=== PATIENT | female | born 1975 | race Asian ===

== ENCOUNTER 2017-01-18 14:09 | Outpatient (CLI) | payer MEDICAID ==
[~2017-01-18] VITALS: Ht 157.5 cm; Wt 59.1 kg
[2017-01-18 14:41] VITALS: BP 106/61
[2017-01-18] MEDS ORDERED: PREN1TAB60 PO (14:50)
== END 2017-01-18 15:16 | disposition home or self-care (01) ==
LOC: LDOP 14:09
PROVIDERS: ATTEND Obstetrics & Gynecology
DX: O09.523 Supervision of elderly multigravida, third trimester (principal); O26.893 Other specified pregnancy related conditions, third trimester; R10.9 Unspecified abdominal pain; Z3A.37 37 weeks gestation of pregnancy
CPT/HCPCS: 59025; 99211; G0463

== ENCOUNTER 2017-01-19 04:30 | Inpatient (IN) | payer MEDICAID ==
[~2017-01-19] VITALS: Ht 157.5 cm; Wt 61.0 kg
[~2017-01-19 04:30] MED LIST: PREN1TAB60 PO
[2017-01-19] MEDS ORDERED: OXYTOCIN 30U/ 0.9% NaCL 500ML 500 ML IV ONE (04:46)
[2017-01-19] MEDS ORDERED: D5%-LACTATED RINGERS 1,000 ML IV SCH (04:46)
[2017-01-19] MEDS ORDERED: OXYTOCIN 30U/ 0.9% NaCL 500ML 500 ML ONE (04:53)
[2017-01-19] MEDS ORDERED: MISOPROSTOL 200 MCG TABLET ONE (04:53)
[2017-01-19] MEDS ORDERED: LIDOCAINE 1%, 20ML ONE ×2 (04:53→05:49)
[2017-01-19] MEDS ORDERED: NEWBORN KIT ONE (04:53)
[2017-01-19] MEDS ORDERED: FENTANYL PF 100 MCG/2ML ONE (04:59)
[2017-01-19] MEDS ORDERED: FENTANYL PF 100 MCG/2ML IVPush PRN (05:00)
[2017-01-19] MEDS ORDERED: FENTANYL PF 100 MCG/2ML IV PRN (05:00)
[2017-01-19] MEDS ORDERED: ONDANSETRON 2MG/ML, 2ML IVPush PRN (05:00)
[2017-01-19] MEDS: LACTATED RINGERS 1,000 ML IV SCH ×2 (05:16→12:46)
[2017-01-19] MEDS ORDERED: OXYTOCIN 30U/ 0.9% NaCL 500ML 500 ML IV SCH (08:17)
[2017-01-19] MEDS ORDERED: OXYcodone/APAP 5/325MG TABLET PO PRN ×2 (08:30)
[2017-01-19] MEDS ORDERED: MISOPROSTOL 200 MCG TABLET SL PRN (08:30)
[2017-01-19] MEDS ORDERED: ACETAMINOPHEN 325 MG TABLET PO PRN (08:30)
[2017-01-19] MEDS ORDERED: IBUPROFEN 600 MG TABLET PO PRN (08:30)
[2017-01-19] MEDS ORDERED: DOCUSATE 100 MG CAPSULE PO PRN (08:30)
[2017-01-19] MEDS ORDERED: ONDANSETRON 2MG/ML, 2ML IV PRN (08:30)
[2017-01-19] MEDS: PRENATAL VIT/IRON/FA 1 EACH TABLET PO SCH (09:00)
[2017-01-19 10:30] VITALS: BP 105/70
[2017-01-19 12:00] VITALS: BP 109/72
[2017-01-19 14:59] VITALS: BP 112/72
[2017-01-19 20:00] VITALS: BP 114/72
[2017-01-20 00:15] VITALS: BP 106/70
[2017-01-20 07:50] VITALS: BP 96/60
[2017-01-20] MEDS: PRENATAL VIT/IRON/FA 1 EACH TABLET PO SCH (07:58)
== END 2017-01-20 16:12 | disposition home or self-care (01) | DRG 775 ==
LOC: LDOP 04:30 → LDIP 04:53 → 2NW 09:55
PROVIDERS: ADMIT Obstetrics & Gynecology; ATTEND Obstetrics & Gynecology
PROC: 10E0XZZ Delivery of Products of Conception, External Approach (ICD-10-PCS; principal; 2017-01-19)
DX: O80 Encounter for full-term uncomplicated delivery (principal); Z37.0 Single live birth; Z3A.37 37 weeks gestation of pregnancy; O09.523 Supervision of elderly multigravida, third trimester
CPT/HCPCS: 36415; 85025; 86850; 86900; J3010; J2590; J7120

== ENCOUNTER → 2017-04-18 | Outpatient (CLI) | payer MEDICAID ==
[2017-04-18 12:53] LABS: HEMATOCRIT 40.9 % (34.6-47.8); HEMOGLOBIN 13.6 g/dL (11.7-16.4); WHITE BLOOD COUNT 5.3 x10^3/uL (3.4-10)
== END | disposition home or self-care (01) ==
LOC: STAR 12:00
PROVIDERS: ATTEND Obstetrics & Gynecology
DX: Z30.2 Encounter for sterilization (principal); R82.99 Other abnormal findings in urine
CPT/HCPCS: 36415; 81003; 84703; 85025

== ENCOUNTER 2017-04-26 09:05 | Day surgery (SDC) | payer MEDICAID ==
[~2017-04-26] VITALS: Ht 157.5 cm; Wt 54.6 kg
[2017-04-26] MEDS ORDERED: LACTATED RINGERS 1,000 ML IV SCH (09:16)
[2017-04-26 09:22] VITALS: BP 111/76
[2017-04-26] MEDS ORDERED: LIDOCAINE 1%, 2ML ONE (09:28)
[2017-04-26] MEDS ORDERED: LIDOCAINE 1%, 2ML SQ PRN (09:30)
[2017-04-26 09:38] LABS: HCG UR OBC PASS
[2017-04-26] MEDS ORDERED: BUPIVACAINE/PF 0.25% ONE (10:10)
[2017-04-26] MEDS ORDERED: MIDAZOLAM 1 MG/ML, 2ML ONE (10:23)
[2017-04-26] MEDS ORDERED: FENTANYL PF 250 MCG/5ML ONE (10:23)
[2017-04-26] MEDS ORDERED: PROMETHAZINE 25 MG/ML, 1ML IV PRN (11:00)
[2017-04-26] MEDS ORDERED: METOCLOPRAMIDE 5 MG/ML, 2ML IV PRN (11:00)
[2017-04-26] MEDS ORDERED: OXYcodone 5 MG/5 ML ORAL.SOL UDC PO PRN (11:00)
[2017-04-26] MEDS ORDERED: FENTANYL PF 100 MCG/2ML IV PRN (11:00)
[2017-04-26] MEDS ORDERED: HYDROmorphone 1 MG/ML, 1ML IV PRN (11:00)
[2017-04-26] MEDS ORDERED: ONDANSETRON 2MG/ML, 2ML IVPush PRN (11:00)
[2017-04-26] MEDS ORDERED: ACETAMINOPHEN 325 MG TABLET PO PRN (11:00)
[2017-04-26] MEDS ORDERED: CEFAZOLIN 1,000 MG ONE (11:13)
[2017-04-26] MEDS ORDERED: ROCURONIUM 10 MG/ML ONE (11:13)
[2017-04-26] MEDS ORDERED: GLYCOPYRROLATE 0.2MG/1ML ONE (11:13)
[2017-04-26] MEDS ORDERED: DEXAMETHASONE 4 MG/ML, 1ML ONE (11:13)
[2017-04-26] MEDS ORDERED: ONDANSETRON 2MG/ML, 2ML ONE (11:13)
[2017-04-26] MEDS ORDERED: NEOSTIGMINE 1 MG/ML, 10ML ONE (11:13)
[2017-04-26] MEDS ORDERED: PROPOFOL 10 MG/ML, 20ML ONE (11:13)
[2017-04-26] MEDS ORDERED: KETOROLAC 30 MG/1 ML ONE (12:52)
[2017-04-26] MEDS ORDERED: KETOROLAC 30 MG/1 ML IVPush PRN (13:00)
== END 2017-04-26 15:10 | disposition home or self-care (01) ==
LOC: OUT 09:05
PROVIDERS: ATTEND Obstetrics & Gynecology
DX: Z30.2 Encounter for sterilization (principal)
CPT/HCPCS: 58661; 81025; 88302; J0690; J1100; J1885; J2250; J2405; J2704; J2710; J3010; J3490; J7120

== ENCOUNTER → 2017-05-31 | Outpatient (CLI) | payer MEDICAID ==
[~2017-05-31] MED LIST changes: +OMNIPAQUE 300 MG/ML, 10ML VIAL ONE
== END | disposition home or self-care (01) ==
LOC: RAD 09:21
PROVIDERS: ATTEND Obstetrics & Gynecology
DX: Z30.9 Encounter for contraceptive management, unspecified (principal); N97.1 Female infertility of tubal origin
CPT/HCPCS: 74740; Q9967